=== PATIENT | female | born 1990 | race African-American/Black ===

== ENCOUNTER 2021-06-17 10:48 | Emergency (ER) | payer SELFPAY ==
[~2021-06-17] VITALS: Ht 162.6 cm; Wt 55.8 kg
[2021-06-17] MEDS ORDERED: ACETAMINOPHEN 325 MG TAB PO ONE (11:15)
[2021-06-17 11:30] LABS: CLARITY,URINE CLOUDY (CLEAR); COLOR,URINE YELLOW (YELLOW); KETONES,URINE TRACE (NEGATIVE); LEUKOCYTE ESTERASE ,URINE SMALL (NEGATIVE); NITRITE,URINE POSITIVE (NEGATIVE); PROTEIN,URINE DIPSTICK 2+ (NEGATIVE)
[2021-06-17 11:36] LABS: BACTERIA,URINE MANY /HPF; EPITHELIAL CELLS,URINE FEW /LPF
[2021-06-17 11:43] VITALS: BP 117/80
== END 2021-06-17 11:57 | disposition home or self-care (01) ==
LOC: ER 11:41
DX: R50.9 Fever, unspecified (principal); M54.5 Low back pain; N39.0 Urinary tract infection, site not specified
CPT/HCPCS: 81001; 81025; 87086; 87186; 99283